=== PATIENT | male | born 1960 | race African-American/Black ===

== ENCOUNTER 2017-10-28 08:27 | Day surgery (SDC) | payer OTHER ==
[2017-10-27 12:10] VITALS: BMI 31.5
[~2017-10-28 08:27] MED LIST: LACTATED RINGERS 1,000 ML IV SCH
[2017-10-28 09:51] VITALS: TEMP 97.9
[2017-10-28] MEDS ORDERED: LIDOCAINE 1% 20 ML VIAL (10MG/ML) FOR IV START INTRADERMA ONE (09:51)
[2017-10-28] MEDS ORDERED: GLUCAGON 1 MG/ML VIAL ONE (10:10)
[2017-10-28] MEDS ORDERED: PROPOFOL 10 MG/ML 20 ML VIAL IV ONE (10:10)
[2017-10-28] MEDS ORDERED: LIDOCAINE 1% INJ 10MG/ML (20 ML MDV) ONE (10:10)
--- NOTE | 2017-10-28 10:17 | P.GSHP ---
History of Present Illness H&P Date: 10/28/17 Chief Complaint: Screening colonoscopy This a 57-year-old male who presents today for screening colonoscopy. He denies any significant GI complaints. 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." History of Any Multi-Drug Resistant Organisms: None Reported Past Surgical History: No Surgical Hx Reported Additional Past Anesthesia/Blood Transfusion Reaction / Comment(s): never has had general anesthesia Smoking Status: Never smoker - Past Family History Mother History Unknown: Yes Medications and Allergies Home Medications Medication Instructions Recorded Confirmed Type Cholecalciferol (Vitamin D3) 1 tab PO DAILY 10/28/17 10/28/17 History [Vitamin D3] Lisinopril [Zestril] 1 tab PO DAILY 10/28/17 10/28/17 History Allergies Allergy/AdvReac Type Severity Reaction Status Date / Time No Known Allergies Allergy Verified 10/28/17 09:31 Surgical - Exam Vital Signs Temp Pulse Resp BP Pulse Ox 97.9 F 77 16 160/73 99 10/28/17 09:50 10/28/17 09:50 10/28/17 09:50 10/28/17 09:50 10/28/17 09:50 - General well developed, no distress - Eyes PERRL - ENT normal pinna, normal mucosa Assessment and Plan Assessment: We'll perform screening colonoscopy.
--- NOTE | 2017-10-28 10:39 | P.OP ---
Date of Procedure: 10/28/17 Preoperative Diagnosis: Screening colonoscopy Postoperative Diagnosis: Rectal polyp Procedure(s) Performed: Colonoscopy Anesthesia: MAC Surgeon: Jonatan Elkins Pathology: other (Rectal polyp) Condition: stable Disposition: PACU Description of Procedure: The patient's placed on the endoscopy table lateral position. He received IV sedation. Digital rectal exam was performed which revealed no abnormalities. The flexible colonoscope was then placed patient anus and passed throughout the entire colon. The ileocecal valve was visualized. The cecum, ascending and transverse colon appeared normal. Scope was then brought back in the descending colon and this appeared normal. Scope was brought back the sigmoid colon and this was normal. The scope was then brought back the rectum and a peduncular polyp was seen in this removed with the snare. Scope was withdrawn for patient.
[2017-10-28 10:48] VITALS: RESP 18
[2017-10-28 11:04] VITALS: BP 127/86; PULSE 80
== END 2017-10-28 11:49 | disposition home or self-care (01) ==
LOC: ORWHC2ENDO 08:27
PROVIDERS: ATTEND Surgery
DX: Z12.11 Encounter for screening for malignant neoplasm of colon (principal); D12.8 Benign neoplasm of rectum; I10 Essential (primary) hypertension; Z79.899 Other long term (current) drug therapy
CPT/HCPCS: 88305; 45385; J1610; J2001; J2704

== ENCOUNTER 2017-12-12 09:28 | Emergency (ER) | payer OTHER ==
[2017-12-12] MEDS ORDERED: KETOROLAC 30 MG/ML 1 ML VIAL IM STA (10:32)
--- NOTE | 2017-12-12 11:45 | ED ---
General Adult HPI - General Chief complaint: Headache Stated complaint: HYPERENTION Time Seen by Provider: 12/12/17 09:44 Source: patient, RN notes reviewed Mode of arrival: wheelchair Limitations: no limitations - History of Present Illness Initial comments: This is a 57-year-old male with a past medical history of hypertension currently on lisinopril 10 mg who presents today for chief complaint of headache times one day. patient states he was at work earlier when he noticed the onset of a headache he stated the head headache was located in the front without radiation, throbbing /10 and was identical to the headache he had last week when he was seen at [facility] where they did no imaging and he received a "shot" that he stated helped a ton took away his headache. Patient did admit to feeling slightly dizzy at work today in addition to headache and stated that last week when he had the headache he was told to follow-up with primary care physician for the headache and elevated BP, so he felt he should go to the ER today to follow-up with his BP and for the headache he currently had. He also stated he should come to the emergency department. Upon presentation vital signs stable with blood pressure elevated 155/93. patient denied visual changes, diplopia, muscle weakness, ataxia, gait abnormalities, dysphagia, speech abnormalities, chest pain, palpitations, shortness of breath, recent fever, chills, shortness of breath, chest pain, back pain, abdominal pain, nausea or vomiting, numbness or tingling, dysuria or hematuria, constipation or diarrhea, headaches or visual changes, or any other complaints. - Related Data Home Medications Medication Instructions Recorded Confirmed Lisinopril [Zestril] 10 mg PO DAILY 10/28/17 12/12/17 Previous Rx's Medication Instructions Recorded Acetaminophen Tab [Tylenol Tab] 500 mg PO Q6H 3 Days #12 tablet 12/12/17 Allergies Allergy/AdvReac Type Severity Reaction Status Date / Time No Known Allergies Allergy Verified 12/12/17 11:18 Review of Systems ROS Statement: Those systems with pertinent positive or pertinent negative responses have been documented in the HPI. ROS Other: All systems not noted in ROS Statement are negative. Constitutional: Denies: fever, chills, weakness Eyes: Denies: vision change ENT: Denies: hearing loss Cardiovascular: Denies: chest pain, palpitations Endocrine: Denies: fatigue Gastrointestinal: Denies: abdominal pain, nausea, vomiting, diarrhea, constipation Musculoskeletal: Denies: back pain Skin: Denies: rash Neurological: Reports: headache. 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 Eye: Pupils are equal, round and reactive to light, no evidence of APD or photophobia. extra-ocular movements are intact. No nystagmus. There is normal conjunctiva bilaterally. No signs of icterus. VF intact. Ears, nose, mouth and throat: There are moist mucous membranes and no oral lesions. No pain to the facial sinuses Neck: The neck is supple, there is no tenderness or JVD. No evidence of nuchal rigidity. Negative Brudzinski's, negative Kernig. Cardiovascular: There is a regular rate and rhythm. No murmur, rub or gallop is appreciated. Respiratory: Lungs are clear to auscultation, respirations are non-labored, breath sounds are equal. No wheezes, stridor, rales, or rhonchi.] Musculoskeletal: Normal ROM, no tenderness. Strength 5/5. Sensation intact. Pulses equal bilaterally 2+. Neurological: A&O x 3. CN II-XII intact, patient able to heel, toe walk and accordingly manner without gait abnormalities. Negative Romberg. No pronator drift. Coordination intact to [id number] [id number]. Speech is normal. +5 out of 5 muscle strength of the upper extremities and lower extremities equal bilaterally. No signs hemineglect or inattention. Patient memory intact to immediate, intermediate and care home. Able to identify a pen. No signs dyspraxia. +2 deep tendon reflexes of the patellar, Achilles , brachioradialis and triceps. Sensation intact of the upper extremity and lower extremities equal bilaterally. She is able to identify extinction. Skin: Skin is warm and dry and no rashes or lesions are noted. Psychiatric: Cooperative, appropriate mood & affect, normal judgment. Limitations: no limitations General appearance: alert Course Vital Signs 12/12/17 09:32 Temperature 98.2 F Pulse Rate 71 Respiratory 18 Rate Blood Pressure 155/93 O2 Sat by Pulse 99 Oximetry - Reevaluation(s) Reevaluation #1: 12/12/17 11:51 Patient resting comfortably in bed stating that his headache is much better now only 2/10 stating that "it feels as though it is going away now." Medical Decision Making - Medical Decision Making This is a 57-year-old male with a past medical history of hypertension currently on lisinopril 10 mg who presents today for chief complaint of headache times one day. patient states he was at work earlier when he noticed the onset of a headache he stated the head headache was located in the front without radiation, throbbing 12/20 and was identical to the headache he had last week when he was seen at [facility] where they did no imaging and he received a "shot" that he stated helped a ton took away his headache. Patient did admit to feeling slightly dizzy at work today in addition to headache and stated that last week when he had the headache he was told to follow-up with primary care physician for the headache and elevated BP, so he felt he should go to the ER today to follow-up with his BP and for the headache he currently had. He also stated he should come to the emergency department. Upon presentation vital signs stable with blood pressure elevated 155/93. patient denied visual changes, diplopia, muscle weakness, ataxia, gait abnormalities, dysphagia, speech abnormalities, chest pain, palpitations, shortness of breath, recent fever. Upon physical examination A&O x 3. CN II- XII intact, patient able to heel, toe walk in a coordinatd manner without gait abnormalities. Negative Romberg. No pronator drift. Coordination intact to [id number]. Speech is normal. +5 out of 5 muscle strength of the upper extremities and lower extremities equal bilaterally. No signs hemineglect or inattention. Patient memory intact to immediate, intermediate and care home. Able to identify a pen. No signs dyspraxia. +2 deep tendon reflexes of the patellar, Achilles , brachioradialis and triceps. Sensation intact of the upper extremity and lower extremities equal bilaterally. She is able to identify extinction. Patient was given 30 mg Toradol IM for pain relief. In addition EKG was obtained due to patient complaining of possible dizziness at work, EKG was performed and evaluated by attending Dr. Davila who compared today's EKG with that of 10/01/2015. The two EKG appear to be the same , no new changes. Upon reevaluation the patient after the Toradol patient states that his headache is now a 2 out of 10 and feels those going away, he was resting complaining bed. I did a repeat blood pressure patient personally which was 187/102. Patient was given 0.2 of Catapres once. Repeat blood pressures 168/92. The case was discussed with Dr. Davila who felt at this time is stable for discharge. Patient was instructed to take Tylenol 500 every 6 hours as needed for pain management. To return to emergency department if symptoms worsen or change. In addition patient was instructed to follow-up with his primary care provider, which she agreed and understood for blood pressure management. Disposition Clinical Impression: Headache, Elevated blood pressure reading Disposition: HOME SELF-CARE Condition: Good Instructions: Acute Headache (ED), Hypertension (ED) Additional Instructions: Please use medication as discussed. Please follow-up with family doctor in the next 2 days of symptoms for continued blood pressure management and headache follow-up. Please return to emergency room if the symptoms increase or worsen or for any other concerns. Prescriptions: Acetaminophen Tab [Tylenol Tab] 500 mg PO Q6H 3 Days #12 tablet Is patient prescribed a controlled substance at d/c from ED?: No Referrals: None,Stated [Primary Care Provider] - 1-2 days Decision Time: 13:08
[2017-12-12] MEDS ORDERED: cloNIDine HCL 0.2 MG TAB PO STA (12:00)
[2017-12-12 13:09] VITALS: RESP 20
[2017-12-12 13:31] VITALS: BP 168/88; PULSE 82; TEMP 98.3
== END 2017-12-12 13:20 | disposition home or self-care (01) ==
LOC: EC 09:28
DX: R51 Headache (principal); I10 Essential (primary) hypertension; R42 Dizziness and giddiness; Z79.899 Other long term (current) drug therapy
CPT/HCPCS: 93005; 99284; 96372; J1885

== ENCOUNTER 2023-01-07 11:40 | Emergency (ER) | payer OTHER ==
[2023-01-07 12:09] VITALS: RESP 18; TEMP 98
[2023-01-07 13:10] LABS: Basophils % (A) 0 %; Eosinophils # (A) 0.1 k/uL (0-0.7); Eosinophils % (A) 2 %; HCT 41.7 % (39.0-53.0); HGB 13.5 gm/dL (13.0-17.5); Hypochromasia Slight; Lymphocytes # (A) 1.9 k/uL (1.0-4.8); Lymphocytes % (A) 36 %; MCH 28.4 pg (25.0-35.0); MCHC 32.3 g/dL (31.0-37.0); Mean Platelet Volume 8.8; Monocytes # (A) 0.3 k/uL (0-1.0); Monocytes % (A) 6 %; Neutrophils % (A) 55 %; Platelet Count 142 k/uL (150-450); RBC 4.74 m/uL (4.30-5.90); RDW 15.4 % (11.5-15.5); WBC 5.4 k/uL (3.8-10.6)
[2023-01-07 13:19] LABS: Prothrombin Time 10.6 sec (9.0-12.0)
[2023-01-07 13:21] LABS: ALT 18 U/L (4-49); AST 19 U/L (17-59); African American GFR (CKD) 75 (>60 ml/min/1.73 sqM); Albumin 3.8 g/dL (3.5-5.0); Alkaline Phosphatase 62 U/L (38-126); Anion Gap 6 mmol/L; Blood Urea Nitrogen 18 mg/dL (9-20); Calcium 8.8 mg/dL (8.4-10.2); Carbon Dioxide 25 mmol/L (22-30); Chloride 107 mmol/L (98-107); Glucose 82 mg/dL (74-99); Non-African American GFR(CKD) 65 (>60 ml/min/1.73 sqM); Potassium 4.4 mmol/L (3.5-5.1); Sodium 138 mmol/L (137-145); Total Bilirubin 0.5 mg/dL (0.2-1.3); Total Protein 6.2 g/dL (6.3-8.2)
--- NOTE | 2023-01-07 13:21 | ED ---
General Adult HPI - General Chief complaint: Shortness of Breath Stated complaint: Low HR Time Seen by Provider: 01/07/23 12:25 Source: patient Mode of arrival: ambulatory Limitations: no limitations - History of Present Illness Initial comments: Bradley is a 62-year-old male who presents to the emergency department today for evaluation of bradycardia. Patient was seen by podiatry early in the week for left lower extremity swelling they told him he likely had gout and rhythm off work. He was following up today and they noted that he is bradycardic with heart rate in the 40s he didn't have any chest pain palpitation shortness of breath or lightheadedness however they told him as an abnormal heart rate for somebody his age and told him to the hospital for evaluation. Patient takes lisinopril daily for hypertension no beta milena calcium channel milena to his knowledge. - Related Data Home Medications Medication Instructions Recorded Confirmed lisinopriL [Zestril] 10 mg PO DAILY 10/28/17 12/12/17 Previous Rx's Medication Instructions Recorded Acetaminophen Tab [Tylenol Tab] 500 mg PO Q6H 3 Days #12 tablet 12/12/17 Allergies Allergy/AdvReac Type Severity Reaction Status Date / Time No Known Allergies Allergy Verified 01/07/23 12:03 Review of Systems ROS Statement: Those systems with pertinent positive or pertinent negative responses have been documented in the HPI. ROS Other: All systems not noted in ROS Statement are negative. 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 Patient is nontoxic and well-hydrated and is in no distress. HENT: Normocephalic, Atraumatic. EYES: PERRL, EOMI PULMONARY: Unlabored respirations. No audible rales rhonchi or wheezing was noted. CARDIOVASCULAR: Right Sided heart sounds Bradycardic and regular ABDOMEN: Soft and nontender with normal bowel sounds. SKIN: Skin is clear with no lesions or rashes and otherwise unremarkable. : Deferred NEUROLOGIC: Patient is alert and oriented x3. Moving all extremities spontaneously MUSCULOSKELETAL: Normal extremities with adequate strength and full range of motion. 1+ pitting edema of the left lower extremity PSYCHIATRIC: Normal psychiatric evaluation. Limitations: no limitations Course Vital Signs 01/07/23 01/07/23 01/07/23 12:04 12:36 15:02 Temperature 98 F Pulse Rate 43 L 45 L Respiratory 18 18 18 Rate Blood Pressure 197/112 194/102 O2 Sat by Pulse 98 100 Oximetry 01/07/23 16:04 Temperature Pulse Rate 45 L Respiratory 18 Rate Blood Pressure 178/89 O2 Sat by Pulse 98 Oximetry EKG Findings - EKG Comments: EKG Findings:: EKG interpreted by me EKG was obtained due to bradycardia EKG was obtained at 1249 and there is a rate of 43 is a P-wave before each QRS consistent with a sinus bradycardia CA is prolonged at 187, QRS 109, QTC prolonged at 436. No acute ST elevations or deep T-wave inversions are this may be related to sinus inversus. Medical Decision Making - Medical Decision Making Pt was seen and evaluated, EKG chest x-ray and labs are obtained, lower extremity venous Doppler was obtained. Labs resulted with no significant acute abnormalities. Patient's heart rate increased to the 50s when he was ambul ating. DVT study was negative. Patient received IV enalaprilat for persistent hypertension, blood pressure improved. I advised patient he needs to follow with his primary care to reevaluate the dosage of lisinopril he is taking. Patient expressed understanding was comfortable with plan for discharge home. Was pt. sent in by a medical professional or institution (, PA, [employer], urgent care, hospital, or usp...) When possible be specific @ -Yes Did you speak to anyone other than the patient for history (EMS, parent, family, police, friend...)? What history was obtained from this source @ -No Did you review nursing and triage notes (agree or disagree)? Why? @ -I reviewed and agree with nursing and triage notes Were old charts reviewed (outside hosp., previous admission, EMS record, old EKG, old radiological studies, urgent care reports/EKG's, usp records)? Report findings @ -No old charts were reviewed Differential Diagnosis (chest pain, altered mental status, abdominal pain women, abdominal pain men, vaginal bleeding, weakness, fever, dyspnea, syncope, headache, dizziness, GI bleed, back pain, seizure, CVA, palpatations, mental health, musculoskeletal)? @ -not applicable EKG interpreted by me (3pts min.). @ -As above X-rays interpreted by me (1pt min.). @ -None done CT interpreted by me (1pt min.). @ -None done U/S interpreted by me (1pt. min.). @ -None done What testing was considered but not performed or refused? (CT, X-rays, U/S, labs)? Why? @ -None What meds were considered but not given or refused? Why? @ -None Did you discuss the management of the patient with other professionals (professionals i.e. , PA, [employer], lab, RT, psych nurse, group social worker, parimutuel ticket seller, teacher, physics technical officer, lead case manager)? Give summary @ -No Was smoking cessation discussed for >3mins.? @ -No Was critical care preformed (if so, how long)? @ -No Were there social determinants of health that impacted care today? How? (Homelessness, low income, unemployed, alcoholism, drug addiction, transportation, low edu. Level, literacy, decrease access to med. care, alf, rehab)? @ -No Was there de-escalation of care discussed even if they declined (Discuss DNR or withdrawal of care, Hospice)? DNR status @ -No What co-morbidities impacted this encounter? (DM, HTN, Smoking, COPD, CAD, Cancer, CVA, ARF, Chemo, Hep., AIDS, mental health diagnosis, sleep apnea, morbid obesity)? @ -None Was patient admitted / discharged? Hospital course, mention meds given and route, prescriptions, significant lab abnormalities, going to OR and other pertinent info. @ -Discharge Undiagnosed new problem with uncertain prognosis? @ -No Drug Therapy requiring intensive monitoring for toxicity (Heparin, Nitro, Insulin, Cardizem)? @ -No Were any procedures done? @ -No Diagnosis/symptom? @ -Hypertension, lower extremity edema Acute, or Chronic, or Acute on Chronic? @ -Chronic Uncomplicated (without systemic symptoms) or Complicated (systemic symptoms)? @ -Uncomplicated Side effects of treatment? @ -No Exacerbation, Progression, or Severe Exacerbation? @ -No Poses a threat to life or bodily function? How? (Chest pain, USA, OR, pneumonia, PE, COPD, DKA, ARF, appy, cholecystitis, CVA, Diverticulitis, Homicidal, Suicidal, threat to staff... and all critical care pts) @ -No - Lab Data Result diagrams: 01/07/23 13:01 01/07/23 13:01 Lab Results 01/07/23 01/07/23 01/07/23 Range/Units 13: 13: 13:01 WBC 5.4 (3.8-10.6) k/uL RBC 4.74 (4.30-5.90) m/uL Hgb 13.5 (13.0-17.5) gm/dL Hct 41.7 (39.0-53.0) % MCV 88.0 (80.0-100.0) fL MCH 28.4 (25.0-35.0) pg MCHC 32.3 (31.0-37.0) g/dL RDW 15.4 (11.5-15.5) % Plt Count 142 L (150-450) k/uL MPV 8.8 Neutrophils % 55 % Lymphocytes % 36 % Monocytes % 6 % Eosinophils % 2 % Basophils % 0 % Neutrophils # 3.0 (1.3-7.7) k/uL Lymphocytes # 1.9 (1.0-4.8) k/uL Monocytes # 0.3 (0-1.0) k/uL Eosinophils # 0.1 (0-0.7) k/uL Basophils # 0.0 (0-0.2) k/uL Hypochromasia Slight PT 10.6 (9.0-12.0) sec INR 1.0 (<1.2) APTT 26.0 (22.0-30.0) sec Sodium 138 (137-145) mmol/L Potassium 4.4 (3.5-5.1) mmol/L Chloride 107 (98-107) mmol/L Carbon Dioxide 25 (22-30) mmol/L Anion Gap 6 mmol/L BUN 18 (9-20) mg/dL Creatinine 1.21 (0.66-1.25) mg/dL Est GFR (CKD-EPI)AfAm 75 (>60 ml/min/1.73 sqM) Est GFR (CKD-EPI)NonAf 65 (>60 ml/min/1.73 sqM) Glucose 82 (74-99) mg/dL Plasma Lactic Acid Mikael (0.7-2.0) mmol/L Calcium 8.8 (8.4-10.2) mg/dL Total Bilirubin 0.5 (0.2-1.3) mg/dL AST 19 (17-59) U/L ALT 18 (4-49) U/L Alkaline Phosphatase 62 (38-126) U/L Troponin I (0.000-0.034) ng/mL NT-Pro-B Natriuret Pep 639 pg/mL Total Protein 6.2 L (6.3-8.2) g/dL Albumin 3.8 (3.5-5.0) g/dL 01/07/23 01/07/23 Range/Units 13:01 13:01 WBC (3.8-10.6) k/uL RBC (4.30-5.90) m/uL Hgb (13.0-17.5) gm/dL Hct (39.0-53.0) % MCV (80.0-100.0) fL MCH (25.0-35.0) pg MCHC (31.0-37.0) g/dL RDW (11.5-15.5) % Plt Count (150-450) k/uL MPV Neutrophils % % Lymphocytes % % Monocytes % % Eosinophils % % Basophils % % Neutrophils # (1.3-7.7) k/uL Lymphocytes # (1.0-4.8) k/uL Monocytes # (0-1.0) k/uL Eosinophils # (0-0.7) k/uL Basophils # (0-0.2) k/uL Hypochromasia PT (9.0-12.0) sec INR (<1.2) APTT (22.0-30.0) sec Sodium (137-145) mmol/L Potassium (3.5-5.1) mmol/L Chloride (98-107) mmol/L Carbon Dioxide (22-30) mmol/L Anion Gap mmol/L BUN (9-20) mg/dL Creatinine (0.66-1.25) mg/dL Est GFR (CKD-EPI)AfAm (>60 ml/min/1.73 sqM) Est GFR (CKD-EPI)NonAf (>60 ml/min/1.73 sqM) Glucose (74-99) mg/dL Plasma Lactic Acid Mikael 0.7 (0.7-2.0) mmol/L Calcium (8.4-10.2) mg/dL Total Bilirubin (0.2-1.3) mg/dL AST (17-59) U/L ALT (4-49) U/L Alkaline Phosphatase (38-126) U/L Troponin I <0.012 (0.000-0.034) ng/mL NT-Pro-B Natriuret Pep pg/mL Total Protein (6.3-8.2) g/dL Albumin (3.5-5.0) g/dL Disposition Clinical Impression: HTN (hypertension), Lower extremity edema Disposition: HOME SELF-CARE Condition: Stable Instructions (If sedation given, give patient instructions): Chronic Hypertension (DC) Is patient prescribed a controlled substance at d/c from ED?: No Referrals: Alexus Payton MD [Primary Care Provider] - 1-2 days
--- NOTE | 2023-01-07 13:23 | XR ---
EXAMINATION TYPE: XR chest 2V DATE OF EXAM: 01/07/2023 COMPARISON: 07/30/2022 HISTORY: Shortness of breath TECHNIQUE: Frontal and lateral views of the chest are obtained. FINDINGS: Redemonstration of situs inversus with dextrocardia. No evidence for infiltrate. No evidence for atelectasis. Heart size is stable. Mediastinal structures are stable and grossly unremarkable. No evidence for hilar prominence. Degenerative changes dorsal spine. Remote left-sided rib deformities. IMPRESSION: 1. No evidence for acute pulmonary disease.
[2023-01-07 13:29] LABS: NT-Pro-B-Type Natriuretic Pept 639 pg/mL
--- NOTE | 2023-01-07 14:25 | US ---
EXAMINATION TYPE: US venous doppler duplex LE LT DATE OF EXAM: 01/07/2023 2:19 PM COMPARISON: NONE CLINICAL INDICATION: Male, 62 years old with history of edema; edema SIDE PERFORMED: Left TECHNIQUE: The lower extremity deep venous system is examined utilizing real time linear array sonog shruthi with graded compression, doppler sonography and color-flow sonography. VESSELS IMAGED: Common Femoral Vein Deep Femoral Vein Greater Saphenous Vein * Femoral Vein Popliteal Vein Small Saphenous Vein * Proximal Calf Veins (* superficial vessels) Left Leg: Negative for DVT IMPRESSION: Grayscale, color doppler, spectral doppler imaging performed of the deep veins of the lo wer extremities. There is normal flow, compressibility, vascular waveforms.
[2023-01-07] MEDS ORDERED: ENALAPRILAT 1.25 MG/ML 1 ML VIAL IVP STA (15:03)
[2023-01-07 15:05] VITALS: PULSE 45
[2023-01-07 16:04] VITALS: BP 178/89
== END 2023-01-07 16:30 | disposition home or self-care (01) ==
LOC: EC 11:40
DX: I10 Essential (primary) hypertension (principal); R60.0 Localized edema; Z79.899 Other long term (current) drug therapy
CPT/HCPCS: 36415; 71046; 80053; 83605; 83880; 84484; 85025; 85610; 85730; 93005; 96374; 99285